=== PATIENT | male | born 1960 | race Caucasian/White ===

== ENCOUNTER 2024-12-16 14:22 | Outpatient (CLI) | payer MEDICARE, SELFPAY ==
--- NOTE | 2024-12-16 14:32 | ECG_ITS ---
APPROVED REPORT Exam: Resting ECG HR:88 bpm ECG Measurements Heart Rate 88 AXES NV 180 P 40 QRSd 105 QRS -32 QT 358 T -3 QTc 403 Conclusion SINUS RHYTHM LEFT AXIS DEVIATION [QRS AXIS < -30] MODERATE VOLTAGE CRITERIA FOR LVH, CONSIDER NORMAL VARIANT [MEETS CRITERIA IN ONE OF: R(aVL), S(V1), R(V5), R(V5/V6)+S(V1)] NONSPECIFIC T-WAVE ABNORMALITY ABNORMAL ECG UNCONFIRMED REPORT Electronically signed by : Leandro Camarena MD 12/18/2024 07:52:16
[2024-12-16 14:37] LABS: Microscopic, Urine URINE MICROSCOPIC (MICROSCOPIC)
--- NOTE | 2024-12-16 14:59 | XR_ITS ---
FINAL REPORT CLINICAL HISTORY: tachycardia, chest pressure, shortness of breath on exertion COMPARISON: None FINDINGS: PA and lateral views of the chest were obtained. Linear densities at the bilateral lung bases are compatible with atelectasis or scar. The upper lung castañeda are clear. The mediastinum has a normal appearance. The cardiac silhouette is unremarkable. IMPRESSION: Mild bibasilar scar or atelectasis. Reviewed, Interpreted and Dictated by Armen Duong MD Transcribed by Charity Rojo Authenticated and . [facility]
[2024-12-16 15:12] LABS: Appearance,Urine CLEAR (Clear); Bilirubin,Urine Negative (Negative); Blood, Urine Negative (Negative); Color,Urine YELLOW (Yellow); Glucose,Urine (UA) Negative (Negative); Ketones,Urine Negative (Negative); Leukocyte Esterase,Urine Negative (Negative); Nitrate,Urine Negative (Negative); Protein,Urine Negative (Negative); Urobilinogen,Urine 0.2 EU/dl (0.2)
[2024-12-16 15:26] LABS: Basophils % 0.5 % (0.1-2.0); Eosinophils # 0.1 Kmm3 (0.0-0.4); Eosinophils % 2.2 % (0.1-12.0); Hematocrit 46.1 % (42.0-52.0); Hemoglobin 14.9 g/dL (14.1-18.0); Immature Granulocytes # 0.02 10^3uL; Immature Granulocytes % 0.3 %; Lymphocytes # 1.4 K/mm3 (0.7-4.5); Lymphocytes % 24.2 % (10-50); Mean Corpuscular HGB Conc 32.3 g/dL (31.8-35.4); Mean Corpuscular Hemoglobin 29.7 pg (27.0-31.2); Mean Platelet Volume 10.4 fl (7.4-10.4); Monocytes # 0.5 K/mm3 (0.1-1.0); Monocytes % 8.2 % (1.7-9.3); Neutrophils # 3.8 K/mm3 (1.8-7.8); Neutrophils % 64.6 % (37.0-80.0); Nucleated Red Blood Cells # 0 10^3/uL; Nucleated Red Blood Cells % 0 %; Platelet Count 209 K/mm3 (142-424); Red Blood Count 5.01 M/mm3 (4.60-6.20); Red Cell Distribution Width 13.1 % (11.5-17.5); Red Cell Distribution Width-SD 44.2 fL
[2024-12-16 15:43] LABS: Bacteria,Urine Trace /lpf; Mucus,Urine Trace /lpf; RBC,Urine Occasional #/hpf (0-3)
[2024-12-16 15:44] LABS: WBC,Urine Occasional #/hpf (0-3)
[2024-12-16 16:04] LABS: Hemoglobin A1C 7.8 % (4.0-6.0)
[2024-12-16 16:26] LABS: Albumin Level 4.8 g/dl (3.5-5.0); Chloride 100 mmol/L (98-107); Sodium 140 mmol/L (136-145)
[2024-12-16 16:27] LABS: Potassium 4.1 mmoL/L (3.5-5.1)
[2024-12-16 16:29] LABS: Alanine Aminotransferase 33 U/L (12-78); Albumin/Globulin Ratio 1.6 (1.1-1.8); Alkaline Phosphatase 83 U/L (38-126); Anion Gap 18.1 mEq/L (5-15); Aspartate Amino Transferase 35 U/L (17-59); Bilirubin,Total 0.6 mg/dl (0.2-1.3); Blood Urea Nitrogen 22 mg/dl (9-20); Carbon Dioxide 26 mmol/L (22.0-30.0); Cholesterol 195 mg/dl (140-200); Estimated Glomerular Filt Rate 85 ml/min (>60); GFR (African American) 102 ML/MIN (>60); Glucose 122 mg/dl (74-100); Total Protein,Serum 7.8 g/dl (6.3-8.2); Triglycerides 362 mg/dl (30-150); VLDL Cholesterol 72 mg/dL (0-40)
[2024-12-16 16:30] LABS: Chol/HDL Ratio 5.6 (1-3.5); HDL Cholesterol 35 mg/dl (40-60)
[2024-12-16 16:39] LABS: NT Pro Brain Natriuretic Pep. 58.2 pg/mL (0-125)
[2024-12-16 16:40] LABS: Direct LDL Cholesterol 93.62 mg/dL (100-129)
[2024-12-16 16:43] LABS: Troponin I < 0.01 ng/ml (0.00-0.034)
[2024-12-16 17:00] LABS: Thyroid Stimulating Hormone 1.59 uIU/mL (0.465-4.68)
[2024-12-16 18:11] LABS: Creatinine,Urine Random 207 mg/dL (Not Estab.)
[2024-12-16 18:12] LABS: Microalbumin < 6.000 mg/L (0-16.7)
== END 2024-12-16 23:59 | disposition home or self-care (01) ==
LOC: LAB 14:24
PROVIDERS: PCP Nurse Practitioner; Visit Provider Nurse Practitioner
DX: R94.31 Abnormal electrocardiogram [ECG] [EKG] (principal); R91.8 Other nonspecific abnormal finding of lung field; I10 Essential (primary) hypertension; E78.5 Hyperlipidemia, unspecified; R73.01 Impaired fasting glucose; R07.89 Other chest pain; R06.02 Shortness of breath; R00.0 Tachycardia, unspecified
CPT/HCPCS: 36415; 71046; 80053; 80061; 81001; 82043; 82570; 83036; 83880; 84443; 84484; 85025; 93005

== ENCOUNTER 2025-02-16 12:00 | Outpatient (CLI) | payer MEDICARE, SELFPAY ==
[2025-02-16 21:11] LABS: Chloride 104 mmol/L (98-107); Sodium 139 mmol/L (136-145)
[2025-02-16 21:12] LABS: Potassium 4.4 mmoL/L (3.5-5.1)
[2025-02-16 21:14] LABS: Anion Gap 12.4 mEq/L (5-15); Blood Urea Nitrogen 25 mg/dl (9-20); Carbon Dioxide 27 mmol/L (22.0-30.0); Creatinine,Serum 1.10 mg/dl (0.66-1.25); Estimated Glomerular Filt Rate 67 ml/min (>60); GFR (African American) 81 ML/MIN (>60)
[2025-02-16 21:15] LABS: Calcium 9.0 mg/dl (8.4-10.2); Cholesterol 143 mg/dl (140-200); Glucose 101 mg/dl (74-100); HDL Cholesterol 40 mg/dl (40-60); Triglycerides 188 mg/dl (30-150)
[2025-02-16 21:26] LABS: Hemoglobin A1C 6.2 % (4.0-6.0)
== END 2025-02-16 23:59 | disposition home or self-care (01) ==
LOC: LAB.DROPOF 02-17 13:11
PROVIDERS: PCP Nurse Practitioner; Visit Provider Nurse Practitioner
DX: E78.5 Hyperlipidemia, unspecified (principal); E11.9 Type 2 diabetes mellitus without complications
CPT/HCPCS: 80048; 80061; 83036